=== PATIENT | female | born 1940 | race Caucasian/White ===

== ENCOUNTER 2016-11-21 22:23 | Emergency (ER) | payer MEDICARE, BC ==
--- NOTE | ~2016-11-21 | EKG ---
PATIENT: KATARZYNA ARMAS UNIT #: [id number] Ventricular Rate: 57 BPM Atrial Rate: 57 BPM P-R Interval: 184 ms QRS Duration: 82 ms Q-T Interval: 450 ms QTC Calculation(Bezet): 438 ms P [place]: -4 degrees Calculated R [place]: 44 degrees Calculated T [place]: -6 degrees Diagnosis Line: Sinus bradycardia with occasional Premature Diagnosis Line: ventricular complexes Diagnosis Line: Otherwise normal ECG Diagnosis Line: No previous ECGs available Diagnosis Line: Confirmed by WILMAR ESPINOZA MD ([id number]) on 11/22/2016 Diagnosis Line: 5:44:35 PM INTERPRETING MD: OLGA MAZARIEGOS
--- NOTE | ~2016-11-21 | CT71 ---
[facility] A Service of [facility] & [facility] RADIOLOGY TEXT RESULTS PATIENT: KATARZYNA ARMAS LOCATION: [facility] : 42 UNIT #: [id number] AGE: [address]: Chelsea Saenz MD SEX: F ORDER DR: [id number] [facility] [address] [place], [place] [address] [id number] MR#: [id number] Acc #: [id number] NAME: KATARZYNA ARMAS : 1940 SEX: F STUDY DATE/TIME: 11/21/2016 21:23 UNIT: [facility] ROOM: STUDY DESCRIPTION: CT Head Wo Contrast Attending Physician: Chelsea Saenz M.D. Ordering Physician: Chelsea Saenz M.D. Primary Care Physician: Cindy Price M.D. MEDICAL IMAGING REPORT This report is preliminary unless electronic signature is present EXAM Head CT without contrast HISTORY Possible stroke today. Very sleepy. Family could not wake her up. Lethargy and some blurred vision. No trauma. History of hypertension, diabetes. TECHNIQUE This CT exam was performed with one or more of the following radiation dose reduction techniques: automatic exposure control, adjustment of mA and/or kV according to patient size, and iterative reconstruction. COMMENT Routine noncontrast head CT is reviewed. There is a previous from 02/28/2012. There is no displaced calvarial fracture. Mastoid air cells are clear. Partial opacification of the inferior frontal sinuses, ethmoid air cells, mucosal disease in the sphenoid sinuses, left maxillary sinus. No sinus air-fluid level. There is no evidence for acute intracranial hemorrhage or extraaxial fluid collection. There is mild periventricular white matter low-attenuation which is nonspecific but likely due to small vessel disease. Prominent atherosclerotic vascular calcifications at the base of the brain. No acute cortical infarct is suspected but if there is clinical concern for acute CVA, followup imaging is recommended preferably with MRI if the patient is a candidate. There is no intracranial mass effect. IMPRESSION 1. No acute intracranial abnormality is suspected but if there is clinical concern for acute CVA, followup imaging is recommended preferably with MRI if the patient is a candidate. STS. [facility] A Service of [facility] & [facility] RADIOLOGY TEXT RESULTS PATIENT: KATARZYNA ARMAS [facility]ATION: [facility] #: [id number] : 44 UNIT #: [id number] AGE: [address]: Chelsea Saenz MD SEX: F ORDER DR: 2. Mild probable sequela of small vessel disease. Prominent atherosclerotic vascular calcifications at the base of the brain. 3. Considerable paranasal sinus disease but no sinus air-fluid level. Dictated by... Marielos English M.D. THIS IS AN ELECTRONICALLY VERIFIED REPORT Marielos English M.D. at 11/22/2016 12:58 PM Sweetie TD: 11/22/2016 11:03 JOB #: [id number] MEDICAL IMAGING REPORT COPY
--- NOTE | ~2016-11-21 | CR72 ---
[facility] A Service of [facility] & [facility] RADIOLOGY TEXT RESULTS PATIENT: KATARZYNA ARMAS LOCATION: [facility] : 42 UNIT #: [id number] AGE: [address]: Chelsea Saenz MD SEX: F ORDER DR: [id number] [facility] [address] [place], [place] [address] [id number] E MR#: [id number] Acc #: [id number] NAME: KATARZYNA ARMAS : 1940 SEX: F STUDY DATE/TIME: 11/21/2016 21:34 UNIT: [facility] ROOM: STUDY DESCRIPTION: CR Chest Single View Portable Attending Physician: Chelsea Saenz M.D. Ordering Physician: Chelsea Saenz M.D. Primary Care Physician: Cnidy Price M.D. MEDICAL IMAGING REPORT This report is preliminary unless electronic signature is present EXAM Portable chest HISTORY Cough, weakness, shortness of air, diagnosed with shingles June 2016 getting worse. COMPARISON 02/03/2015. FINDINGS Portable view of the chest demonstrates pulmonary hyperinflation and hyperlucency compatible with underlying emphysema. No acute airspace disease or consolidation. Heart, mediastinum unremarkable except for mild aortic atherosclerotic changes. Osseous structures unremarkable except for degenerative changes lower thoracic upper lumbar spine. Overall emphysema. No acute findings. Dictated by... Loni Walter M.D. THIS IS AN ELECTRONICALLY VERIFIED REPORT Loni Walter M.D. at 11/22/2016 8:43 PM JAVI/nhi TD: 11/22/2016 11:12 JOB #: [id number] MEDICAL IMAGING REPORT COPY
[2016-11-21 21:32] LABS: POC - CKMB 1.3 ng/mL (0.0-7.9); POC - TROPONIN <0.05 ng/mL (<=0.05)
[2016-11-21 21:39] LABS: BASOPHIL% 0.9 % (0-2.5); EOSINOPHIL% 0.5 % (0.0-7.0); HEMATOCRIT 34.1 % (35.0-45.0); HEMOGLOBIN 11.5 gm/dL (12.0-16.0); LYMPHOCYTE# 1.6 X10e3 (1.0-3.5); LYMPHOCYTE% 42.9 % (17.0-45.0); MEAN CELL VOLUME 91.5 FL (83-96); MEAN CORPUSCULAR HEMOGLOBIN 30.7 PG (28-34); MEAN CORPUSCULAR HGB CONC 33.6 g/dL (30-36); MEAN PLATELET VOLUME 8.9 FL (6.5-11.5); MONOCYTE# 0.4 X10e3 (0-1.0); MONOCYTE% 12.4 % (3.0-12.0); NEUTROPHIL# 1.6 X10e3 (1.5-7.1); NEUTROPHIL% 43.3 % (40-75); PLATELET COUNT 155 X10e3 (140-420); RED BLOOD COUNT 3.73 X10e (3.90-5.30); RED CELL DISTRIBUTION WIDTH 13.4 % (11.0-15.5); WHITE BLOOD COUNT 3.6 X10e3 (4.0-10.5)
[2016-11-21 21:49] LABS: DIFF IND NO
[2016-11-21 21:58] LABS: INR 1.1; PROTHROMBIN TIME (PATIENT) 11.4 SECONDS (9.6-11.5)
[2016-11-21 22:00] LABS: ALBUMIN SERUM 3.7 g/dL (3.5-5.0); ALKALINE PHOSPHATASE 57 U/L (32-92); ALT (SGPT) 14 U/L (10-40); AST (SGOT) 22 U/L (10-42); BILIRUBIN, DIRECT 0.1 mg/dL (0.0-0.2); BILIRUBIN,INDIRECT 0.4 mg/dL (0.0-0.9); BILIRUBIN,TOTAL 0.5 mg/dL (0.2-2.0); BLOOD UREA NITROGEN 17 mg/dL (9-23); CALCIUM SERUM 9.1 mg/dL (8.4-10.2); CARBON DIOXIDE 27 mmol/L (22-31); CHLORIDE 107 mmol/L (100-111); GLOM FILT RATE Estimated 57.6 mL/min (>60); GLUCOSE FASTING 105 mg/dL (70-110); POTASSIUM 3.5 mmol/L (3.5-5.1); PROTEIN TOTAL SERUM 6.2 g/dL (6.0-8.3); SODIUM 141 mmol/L (135-145)
[2016-11-21 22:08] LABS: ALCOHOL BLOOD <5 mg/dL (0)
[2016-11-21 22:21] LABS: URINE SOURCE CLEAN CATCH
[~2016-11-21 22:23] MED LIST: ATENOLOL PO; CLARITIN10 MG PO; CRESTOR10 MG PO; DIOVAN HCT 80/11 TAB PO; JANUVIA PO; LYRICA PO; METAXALONE800 MG PO; NITROSTAT0.4 MG SL; SKELAXIN PO; TRAMADOL HCL50 M2 PO; ULTRAM PO
[2016-11-21 22:28] LABS: URINE APPEARANCE CLEAR; URINE BILIRUBIN NEG (NEG); URINE BLOOD NEG (NEG); URINE COLOR YELLOW; URINE GLUCOSE NEG (NEG); URINE KETONE NEG (NEG); URINE LEUKOCYTE ESTERASE NEG (NEG); URINE NITRATE NEG (NEG); URINE PH 6.5 (5-8); URINE PROTEIN NEG (NEG); URINE SPECIFIC GRAVITY 1.008 (1.003-1.035); URINE UROBILINOGEN 0.2 MG/DL (NEG)
[2016-11-21 22:32] LABS: CULTURE INDICATED? NO
[2016-11-21 22:38] LABS: AMPHETAMINE NEG (NEG); BARBITURATES NEG (NEG); BENZODIAZEPINES NEG (NEG); COCAINE NEG (NEG); MARIJUANA NEG (NEG); OPIATES NEG (NEG); TRICYCLIC ANTIDEPRESSANTS NEG (NEG); U METHADONE NEG (NEG)
[2016-11-21 23:11] LABS: POC - CKMB 1.4 ng/mL (0.0-7.9); POC - TROPONIN <0.05 ng/mL (<=0.05)
== END 2016-11-21 23:51 | disposition home or self-care (01) ==
LOC: CED 22:23
PROVIDERS: Emergency Medicine
DX: R41.82 Altered mental status, unspecified (principal); T50.905A Adverse effect of unspecified drugs, medicaments and biological substances, initial encounter; I10 Essential (primary) hypertension; E11.9 Type 2 diabetes mellitus without complications; Z90.49 Acquired absence of other specified parts of digestive tract; Z79.899 Other long term (current) drug therapy; Z88.5 Allergy status to narcotic agent; Z88.8 Allergy status to other drugs, medicaments and biological substances; Z91.041 Radiographic dye allergy status
CPT/HCPCS: 70450; 71010; 80048; 80076; 80307; 81003; 82553; 84484; 85025; 85610; 93005; 99284; G0480

== ENCOUNTER → 2016-12-13 | Outpatient (CLI) | payer MEDICARE, BC ==
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
== END | disposition home or self-care (01) ==
LOC: CMRI 15:16
DX: R41.82 Altered mental status, unspecified (principal); G93.9 Disorder of brain, unspecified; R90.82 White matter disease, unspecified; J34.2 Deviated nasal septum; J34.89 Other specified disorders of nose and nasal sinuses
CPT/HCPCS: 70551